=== PATIENT | male | born 1975 | race Caucasian/White ===

== ENCOUNTER → 2018-11-25 | Outpatient (CLI) | payer OTHER ==
--- NOTE | 2018-11-25 14:26 | DIREP ---
PROCEDURE:XRAY FOOT MIN 3 VWS-LT COMPARISON:None. INDICATIONS:PAIN IN LEFT FOOT FINDINGS: BONES:Acute fracture on the lateral view felt to arise from the base of the cuboid versus the anterior calcaneus. Fracture fragment is displaced from the cuboid approximately 4 mm dorsally. There is also a lucency within the navicular bone that is likely artifactual related to vascular channel. However nondisplaced fracture cannot be excluded. JOINTS:Normal. SOFT TISSUES:Soft tissue swelling noted. OTHER:No additional findings. CONCLUSION: 1. Acute fracture of the cuboid versus the anterior calcaneus with mild displacement of fracture fragment. 2. Questionable nondisplaced fracture of the navicular bone versus vascular channel. Suggest follow-up CT to better assess Dictated by: Carlos Maya DO on 11/25/2018 at 02:21 PM
--- NOTE | 2018-11-25 14:27 | DIREP ---
PROCEDURE:XRAY ANKLE MIN 3VWS-LT COMPARISON:None. INDICATIONS:PAIN IN LEFT FOOT FINDINGS: BONES:Fracture from the anterior calcaneus versus the cuboid. See dedicated x-ray foot report complete detail. No fracture identified about the ankle joint. JOINTS:Normal. SOFT TISSUES:Soft tissue swelling noted. OTHER:No additional findings. CONCLUSION: 1. Soft tissue swelling at the ankle joint without visualized ankle joint fracture. Findings compatible with sprain 2. Redemonstrated fracture from the anterior calcaneus versus the base of the cuboid. CT recommended to better assess Dictated by: Carlos Maya DO on 11/25/2018 at 02:25 PM
== END | disposition home or self-care (01) ==
LOC: RAD 13:41
PROVIDERS: ATTEND Nurse Practitioner Family
DX: M79.672 Pain in left foot (principal)
CPT/HCPCS: 73610-LT; 73630-LT